=== PATIENT | female | born 1995 | race Caucasian/White ===

== ENCOUNTER 2017-02-25 04:50 | Emergency (ER) | payer SELFPAY ==
[~2017-02-25] VITALS: Ht 167.6 cm; Wt 61.2 kg
[2017-02-25] MEDS ORDERED: SULFAMETH/TRIMETH 800/160 MG TABLET PO ONE (05:30)
--- NOTE | 2017-02-25 05:32 | NUR ---
Patient discharged to home in stable conditon. Written and verbal after care instructions given. Patient verbalizes understanding of instructions.
[2017-02-25] MEDS ORDERED: SULFAMETH/TRIMETH 800/160 MG TABLET ONE (05:38)
== END 2017-02-25 05:33 | disposition home or self-care (01) ==
LOC: ER 04:53
DX: L01.00 Impetigo, unspecified (principal)
CPT/HCPCS: A4663